=== PATIENT | male | born 1955 | race Caucasian/White ===

== ENCOUNTER 2023-04-05 07:17 | Emergency (ER) | payer MEDICARE, OTHER, SELFPAY ==
[2023-04-05] VITALS (7 sets, daily range): BP systolic 110–129; BP diastolic 71–87; PULSE 61–97; RESP 18–20; TEMP 36.4; O2SAT 97–100; BMI 20.3
--- NOTE | 2023-04-05 07:25 | XR_ITS ---
PROCEDURE INFORMATION: Exam: XR Chest Exam date and time: 04/05/2023 7:54 AM Age: 68 years old Clinical indication: Other: Fall; Additional info: Fall, seizure TECHNIQUE: Imaging protocol: Radiologic exam of the chest. Views: 1 view. COMPARISON: No relevant prior studies available. FINDINGS: Lungs: Unremarkable. No consolidation. Pleural spaces: Unremarkable. No pleural effusion. No pneumothorax. Heart/Mediastinum: Unremarkable. No cardiomegaly. Bones/joints: Degenerative changes in the right acromioclavicular joint. Degenerative changes along the thoracic spine IMPRESSION: No acute process
--- NOTE | 2023-04-05 07:25 | CT_ITS ---
PROCEDURE INFORMATION: Exam: CT Head Without Contrast Exam date and time: 04/05/2023 8:08 AM Age: 68 years old Clinical indication: Pain; Other: No; Additional info: Fall, seizure. . Knot to front lt head TECHNIQUE: Imaging protocol: Computed tomography of the head without contrast. Radiation optimization: All CT scans at this facility use at least one of these dose optimization techniques: automated exposure control; mA and/or kV adjustment per patient size (includes targeted exams where dose is matched to clinical indication); or iterative reconstruction. REPORTING DATA: Count of CT and Cardiac NM exams in prior 12 months: This patient has received 0 known CTs and 0 known cardiac nuclear medicine studies in the 12 months prior to the current study. COMPARISON: No relevant prior studies available. FINDINGS: Brain: No acute intracranial hemorrhage.. There is mild diffuse heterogeneity of the white matter attenuation, consistent with chronic white matter ischemic changes. Mild cerebral atrophy Cerebral ventricles: No ventriculomegaly. Paranasal sinuses: Visualized sinuses are unremarkable. No fluid levels. Mastoid air cells: Visualized mastoid air cells are well aerated. Dental: Periapical lucencies in the maxilla and mandible may represent periapical abscess. Bones/joints: Unremarkable. No acute fracture. Soft tissues: Unremarkable. IMPRESSION: 1. No acute intracranial hemorrhage.. 2. Periapical lucencies in the maxilla and mandible may represent periapical abscess. PROCEDURE INFORMATION: Exam: CT Cervical Spine Without Contrast Exam date and time: 04/05/2023 8:08 AM Age: 68 years old Clinical indication: Pain; Other: No; Additional info: Fall, seizure. . Knot to front lt head TECHNIQUE: Imaging protocol: Computed tomography of the cervical spine without contrast. REPORTING DATA: Count of CT and Cardiac NM exams in prior 12 months: This patient has received 0 known CTs and 0 known cardiac nuclear medicine studies in the 12 months prior to the current study. COMPARISON: CR XR CHEST PORTABLE 04/05/2023 7:54 AM FINDINGS: Bones/joints: No acute fracture of the cervical spine. No subluxation or dislocation of the cervical spine. Anterior osteophyte formation C3 through C7. Posterior osteophyte formation C5. Degenerative changes in the facets at multiple levels. Degenerative changes at C1/C2 Lungs: Lung apices are normal. Thyroid: The thyroid is unremarkable Soft tissues: Unremarkable. IMPRESSION: 1. No acute fracture of the cervical spine. 2. No subluxation or dislocation of the cervical spine.
--- NOTE | 2023-04-05 07:25 | XR_ITS ---
PROCEDURE INFORMATION: Exam: XR Pelvis Exam date and time: 04/05/2023 7:54 AM Age: 68 years old Clinical indication: Injury or trauma; Fall; Additional info: Fall, seizure TECHNIQUE: Imaging protocol: Radiologic exam of the pelvis. Views: 1 or 2 view. COMPARISON: No relevant prior studies available. FINDINGS: Bones/joints: Degenerative changes in both hips and sacroiliac joints. There is no evidence of acute fracture in any of the visualized osseous structures.. There is no evidence of malalignment or dislocation of any visualized joint. Soft tissues: Unremarkable. IMPRESSION: 1. There is no evidence of acute fracture in any of the visualized osseous structures.. 2. There is no evidence of malalignment or dislocation of any visualized joint.
--- NOTE | 2023-04-05 07:34 | HMH.EDGENADL ---
Discharge Plan Disposition Patient Disposition: Xfer Other Condition: Good Referrals Follow up/Referrals: Provider,Referral, [Primary Care Provider] - See instructions Activity Restrictions/Add. Instructions Additional Instructions/Restrictions: Please follow-up with your primary care provider over the next 48 hours. Continue taking your home medications as prescribed. Return to the emergency department for new or worsening symptoms. Clinical Impressions Clinical Impression: Fall, Schizophrenia, Hypokalemia Instructions Patient Instructions: DI for Schizophrenia, How to Prevent Falls, DI for Altered Mental Status Discharge ED Provider: Erin Blount General Adult HPI General Chief complaint: Altered Mental Status Stated complaint: Fall Time Seen by Provider: 04/05/23 07:18 Mode of Arrival: EMS Source of Information: Patient Limitations: Altered Mental Status Description of Symptoms (Recalled from ER Triage Doc. by RN): pt to ed via ems with c/o possible seizure/fall. per [facility] staff, they think pt had a seizure and fell this morning. pt denies any pain and denies falling. on arrival to ed pt is altered. History of Present Illness HPI narrative: This patient is a 68-year-old male with a history of schizophrenia presenting from [facility] with concern for possible seizure and fall that happened this morning. According to [facility] staff, the patient has not been himself for several days now. They had to throw a lot of his belongings because of bedbugs, and after this he has been behaving abnormally. He has been more agitated than usual. EMS notes that today, they were concerned that he had what appeared to be convulsions and then fell to the ground. Upon arrival, patient denies any concerns or complaints, however he is disoriented. He does have a small area of redness/swelling to the left forehead. Related Data Allergies Allergy/AdvReac Type Severity Reaction Status Date / Time No Known Allergies Allergy Verified 04/05/23 07:52 [facility] Disclaimer: The information contained in this section may have been updated after the patient was seen, as this information can be updated by other users. Social History Smoking Status: Never smoker alcohol intake: never current occupational status: unemployed Travel in the last 8 weeks: None ROS Obtained: Yes All systems reviewed & no additional complaints except as documented Physical Exam General General appearance: alert Comment: thin Head Head exam: normocephalic and other (hematoma L forehead) Eye Eye exam: Present normal appearance, PERRL and EOMI ENT ENT exam: Present normal exam, normal oropharynx, mucous membranes moist and normal external ear exam Neck Neck exam: Present normal inspection, full ROM and trachea midline; Absent tenderness Chest Chest inspection: Present normal inspection and symmetric chest wall rise; Absent tenderness Respiratory Respiratory exam: Present normal lung sounds bilaterally; Absent respiratory distress, wheezes, stridor or accessory muscle use Cardiovascular Cardiovascular exam: Present regular rate and normal rhythm Abdominal Exam Abdominal exam: Present soft; Absent distention, tenderness or guarding Extremities Exam Extremities exam: Present normal inspection, full ROM and normal capillary refill; Absent tenderness or edema Back Exam Back exam: Present normal inspection and full ROM; Absent tenderness Neurological Exam Neurological exam: Present alert, CN II-XII intact and normal gait; Absent oriented X3 (oriented to person and place but not time) or motor sensory deficit Psychiatric Psychiatric exam: Present agitated (defensive, combative) Skin Skin exam: Present warm and dry Medical Decision Making Medical Records Medical records reviewed: Yes I reviewed the patient's medical records. Vinayak Inquiry Pt receiving controlled substance: No Vital Sign
[2023-04-05 07:45] LABS: VBG Base Excess -5.2 mmol/L (-2.4-2.3); VBG HCO3 20.5 mmol/L (23-30); VBG Oxygen Saturation 85.6 % (50-70); VBG PCO2 38.6 mmol/L (35-51); VBG PH 7.34 mmol/L (7.31-7.41); VBG PO2 52.3 mmol/L (28-40); VBG Total CO2 21.7 mmol/L (23-27)
[2023-04-05 07:53] LABS: Basophils % 0.4 % (0.1-2.0); Eosinophils # 0.2 K/mm3 (0.0-0.4); Eosinophils % 1.7 % (0.1-12.0); Hematocrit 41.3 % (42.0-52.0); Hemoglobin 13.3 g/dL (14.1-18.0); Lymphocytes # 3.1 K/mm3 (0.7-4.5); Lymphocytes % 26.2 % (10-50); Mean Corpuscular HGB Conc 32.2 g/dL (31.8-35.4); Mean Corpuscular Hemoglobin 31.4 pg (27.0-31.2); Mean Corpuscular Volume 97.4 fl (80-94); Mean Platelet Volume 8.5 fl (7.4-10.4); Monocytes # 0.8 K/mm3 (0.1-1.0); Monocytes % 6.5 % (1.7-9.3); Neutrophils # 7.7 K/mm3 (1.8-7.8); Neutrophils % 65.2 % (37.0-80.0); Platelet Count 255 K/mm3 (142-424); Red Blood Count 4.24 M/mm3 (4.60-6.20); Red Cell Distribution Width 13.2 % (11.5-17.5); White Blood Count 11.8 K/mm3 (4.8-10.8)
--- NOTE | 2023-04-05 07:58 | ECG_ITS ---
APPROVED REPORT Exam: Resting ECG HR:90 bpm ECG Measurements Heart Rate 90 AXES SD 142 P 68 QRSd 89 QRS 56 QT 367 T 62 QTc 415 Conclusion SINUS RHYTHM NORMAL ECG UNCONFIRMED REPORT Electronically signed by : Abel Vaughn MD 04/07/2023 17:15:10
[2023-04-05 08:00] LABS: Lactic Acid 1.9 mmol/L (0.7-2.1)
[2023-04-05 08:01] LABS: Alanine Aminotransferase 23 U/L (12-78); Albumin Level 3.7 g/dl (3.5-5.0); Albumin/Globulin Ratio 1.2 (1.1-1.8); Alkaline Phosphatase 76 U/L (38-126); Anion Gap 14.2 mEq/L (5-15); Aspartate Amino Transferase 39 U/L (17-59); Bilirubin,Total 1.1 mg/dl (0.2-1.3); Blood Urea Nitrogen 21 mg/dl (9-20); Calcium 8.8 mg/dl (8.4-10.2); Carbon Dioxide 22 mmol/L (22.0-30.0); Chloride 104 mmol/L (98-107); Creatinine Clearance Estimated 60 mL/min (50-200); Estimated Glomerular Filt Rate 66 ml/min (>60); GFR (African American) 80 ML/MIN (>60); Globulin 3.1 g/dL (1.3-3.2); Glucose 147 mg/dl (74-100); Potassium 3.2 mmoL/L (3.5-5.1); Sodium 137 mmol/L (136-145); Total Protein,Serum 6.8 g/dl (6.3-8.2)
--- NOTE | 2023-04-05 08:02 | PC.NURSE ---
pt to ct
[2023-04-05 08:37] LABS: Ammonia 14 umol/L (9-30)
--- NOTE | 2023-04-05 09:00 | PC.NURSE ---
pt sleeping in bed no needs,call lighta at bs
--- NOTE | 2023-04-05 09:09 | PC.NURSE ---
EKG obtained [id number]
--- NOTE | 2023-04-05 09:12 | PC.NURSE ---
pt ambulated to restroom and back with no complications, call light at bs
--- NOTE | 2023-04-05 10:05 | PC.NURSE ---
pt was given a lunch tray by [facility] tech
--- NOTE | 2023-04-05 10:38 | PC.NURSE ---
Pt is now resting in bed no needs call light at bs
--- NOTE | 2023-04-05 11:18 | PC.NURSE ---
rounded on pt at this time. pt adamant that he is unable to pee, although he has been given PO liquids to help encourage urination for sample. pt resting in bed, no needs voiced at this time.
[2023-04-05 11:51] LABS: Appearance,Urine CLEAR (Clear); Blood, Urine Negative (Negative); Glucose,Urine (UA) TRACE (Negative); Ketones,Urine TRACE (Negative); Leukocyte Esterase,Urine TRACE (Negative); Microscopic, Urine URINE MICROSCOPIC (MICROSCOPIC); Nitrate,Urine Negative (Negative); Protein,Urine 1+ (Negative); Urobilinogen,Urine >=8.0 EU/dl (0.2)
[2023-04-05 11:52] LABS: Bilirubin,Urine 1+ (Negative); Color,Urine Dark Yellow (Yellow)
--- NOTE | 2023-04-05 12:01 | PC.NURSE ---
Calling [facility] to let them no pt was ready for discharge no answer will try again
--- NOTE | 2023-04-05 12:07 | PC.NURSE ---
Attempted to call [facility] no answer
--- NOTE | 2023-04-05 12:10 | PC.NURSE ---
call made to [facility] with no answer.
--- NOTE | 2023-04-05 12:17 | PC.NURSE ---
call made to daniel samano, due to inability of getting jana gardner.
--- NOTE | 2023-04-05 12:18 | PC.NURSE ---
attempted to call [facility] no answer
--- NOTE | 2023-04-05 12:20 | PC.NURSE ---
received call from [facility]. let staff know that pt was ready to be discharged back to facility. staff stated that they would find someone to come get the pt.
--- NOTE | 2023-04-05 12:34 | PC.NURSE ---
pt asleep in bed , call light at bs
--- NOTE | 2023-04-05 12:50 | PC.NURSE ---
the ride for pt has arrived from [facility]
== END 2023-04-05 12:53 | disposition other institution (70) ==
PROVIDERS: Emergency Provider Emergency Medicine
DX: R41.82 Altered mental status, unspecified (principal); R56.9 Unspecified convulsions; E87.6 Hypokalemia; F20.9 Schizophrenia, unspecified; W19.XXXA Unspecified fall, initial encounter
CPT/HCPCS: 70450; 71045; 72125; 72170; 80053; 81001; 82140; 82803; 83605; 85025; 93005; 96372; 99285

== ENCOUNTER 2023-11-02 12:01 | Emergency (ER) | payer MEDICARE, OTHER, SELFPAY ==
[2023-11-02 12:01] VITALS: BP 116/69; PULSE 79; PULSE 82; RESP 17; TEMP 36.8; O2SAT 98; O2SAT 99; BMI 25.8
[2023-11-02 12:30] VITALS: BP 115/74; PULSE 68; O2SAT 98
--- NOTE | 2023-11-02 12:30 | PC.NURSE ---
Dr. Camrona at bedside
--- NOTE | 2023-11-02 12:38 | CT_ITS ---
PROCEDURE INFORMATION: Exam: CTA Neck With Contrast Exam date and time: 11/02/2023 1:22 PM Age: 68 years old Clinical indication: Other: AMS TECHNIQUE: Imaging protocol: Computed tomographic angiography of the neck with contrast. Exam focused on the cervical segments of the vasculature. 3D rendering (Not supervised by radiologist): MIP and/or 3D reconstructed images were created by the technologist. Radiation optimization: All CT scans at this facility use at least one of these dose optimization techniques: automated exposure control; mA and/or kV adjustment per patient size (includes targeted exams where dose is matched to clinical indication); or iterative reconstruction. Contrast material: ISOVUE; Contrast volume: 100 ml; Contrast route: INTRAVENOUS (IV); COMPARISON: CT CERVICAL SPINE WO CON 04/05/2023 8:08 AM FINDINGS: Right common carotid artery: No stenosis. No dissection or occlusion. Right internal carotid artery: No stenosis of the extracranial segment. No dissection or occlusion. Right external carotid artery: No occlusion or stenosis of the origin. Left common carotid artery: No stenosis. No dissection or occlusion. Left internal carotid artery: No stenosis of the extracranial segment. No dissection or occlusion. Left external carotid artery: No occlusion or stenosis of the origin. Right vertebral artery: No stenosis. No dissection or occlusion. Left vertebral artery: No stenosis. No dissection or occlusion. Soft tissues: Normal. No significant soft tissue swelling. Bones/joints: No acute fracture. IMPRESSION: No stenosis or occlusion. REFERENCES: NASCET CRITERIA. The degree of stenosis in the cervical segment of the internal carotid artery is based on NASCET criteria. Normal is no stenosis. Mild is less than 50% stenosis. Moderate is 50-69% stenosis. Severe is 70% to 99% stenosis. Total occlusion is no detectable patent lumen.
--- NOTE | 2023-11-02 12:38 | XR_ITS ---
PROCEDURE INFORMATION: Exam: XR Chest Exam date and time: 11/02/2023 1:22 PM Age: 68 years old Clinical indication: Dyspnea TECHNIQUE: Imaging protocol: Radiologic exam of the chest. Views: 1 view. COMPARISON: CR XR CHEST PORTABLE 04/05/2023 7:54 AM FINDINGS: Lungs: Unremarkable. No consolidation. Pleural spaces: Unremarkable. No pleural effusion. No pneumothorax. Heart/Mediastinum: Aortic atherosclerosis. No cardiomegaly. Bones/joints: Unremarkable. IMPRESSION: No acute findings.
--- NOTE | 2023-11-02 12:38 | CT_ITS ---
PROCEDURE INFORMATION: Exam: CTA Head With Contrast, Arteriography Exam date and time: 11/02/2023 1:22 PM Age: 68 years old Clinical indication: Other: AMS TECHNIQUE: Imaging protocol: Computed tomographic angiography of the head with contrast. Exam focused on the arteries. 3D rendering (Not supervised by radiologist): MIP and/or 3D reconstructed images were created by the technologist. Radiation optimization: All CT scans at this facility use at least one of these dose optimization techniques: automated exposure control; mA and/or kV adjustment per patient size (includes targeted exams where dose is matched to clinical indication); or iterative reconstruction. Contrast material: ISOVUE; Contrast volume: 100 ml; Contrast route: INTRAVENOUS (IV); COMPARISON: CT HEAD/BRAIN WO CON 11/02/2023 1:22 PM FINDINGS: ANTERIOR CIRCULATION: Right internal carotid artery: Intracranial segment is patent with no significant stenosis. No aneurysm. Right middle cerebral artery: No occlusion or significant stenosis. No aneurysm. Right anterior cerebral artery: No occlusion or significant stenosis. No aneurysm. Left internal carotid artery: Intracranial segment is patent with no significant stenosis. No aneurysm. Left middle cerebral artery: No occlusion or significant stenosis. No aneurysm. Left anterior cerebral artery: No occlusion or significant stenosis. No aneurysm. POSTERIOR CIRCULATION: Right vertebral artery: No occlusion or significant stenosis. No aneurysm. Left vertebral artery: No occlusion or significant stenosis. No aneurysm. Basilar artery: No occlusion or significant stenosis. No aneurysm. Right posterior cerebral artery: No occlusion or significant stenosis. No aneurysm. Left posterior cerebral artery: No occlusion or significant stenosis. No aneurysm. Brain: There is a 0.7 x 1.5 x 2.0 cm area of bulky calcification in left posterior temporal lobe, of unknown etiology (series 3, image 30). No acute intracranial hemorrhage, midline shift, or mass effect. Basal cisterns are patent. No findings to suggest acute infarction. Cerebral ventricles: Prominent sulci and ventricles, consistent with mild to moderate cerebral atrophy. Bones/joints: Unremarkable. No acute fracture. Soft tissues: Unremarkable. IMPRESSION: 1. No large vessel stenosis or occlusion. 2. There is a 0.7 x 1.5 x 2.0 cm area of bulky calcification in left posterior temporal lobe, of unknown etiology (series 3, image 30). No acute intracranial hemorrhage, midline shift, or mass effect. Basal cisterns are patent. No findings to suggest acute infarction. 3. Prominent sulci and ventricles, consistent with mild to moderate cerebral atrophy.
--- NOTE | 2023-11-02 12:38 | CT_ITS ---
PROCEDURE INFORMATION: Exam: CT Head Without Contrast Exam date and time: 11/02/2023 1:22 PM Age: 68 years old Clinical indication: Altered mental status/memory loss; Additional info: AMS TECHNIQUE: Imaging protocol: Computed tomography of the head without contrast. Radiation optimization: All CT scans at this facility use at least one of these dose optimization techniques: automated exposure control; mA and/or kV adjustment per patient size (includes targeted exams where dose is matched to clinical indication); or iterative reconstruction. COMPARISON: CT ANGIO HEAD 11/02/2023 1:22 PM FINDINGS: Brain: There is a 0.7 x 1.5 x 2.0 cm area of bulky calcification in left posterior temporal lobe, of unknown etiology (series 3, image 30). No acute intracranial hemorrhage, midline shift, or mass effect. Basal cisterns are patent. No findings to suggest acute infarction. Prominent sulci and ventricles, consistent with mild to moderate cerebral atrophy. Cerebral ventricles: See Brain finding. Paranasal sinuses: Visualized sinuses are unremarkable. No fluid levels. Mastoid air cells: Visualized mastoid air cells are well aerated. Bones/joints: Unremarkable. No acute fracture. Soft tissues: Unremarkable. IMPRESSION: 1. There is a 0.7 x 1.5 x 2.0 cm area of bulky calcification in left posterior temporal lobe, of unknown etiology. Findings are nonspecific, although intracranial calcifications may be a source of seizures. 2. No acute intracranial hemorrhage, midline shift, or mass effect. Basal cisterns are patent. 3. No findings to suggest acute infarction. 4. Prominent sulci and ventricles, consistent with mild to moderate cerebral atrophy.
--- NOTE | 2023-11-02 12:41 | HMH.EDGENADL ---
Discharge Plan Disposition Patient Disposition: Home, Self-Care Prescriptions Prescriptions: No Action donepezil 5 mg tablet 5 mg PO DAILY divalproex 500 mg tablet,delayed release (DR/EC) 500 mg PO BID zonisamide 100 mg capsule 100 mg PO BID citalopram 20 mg tablet 20 mg PO DAILY ibuprofen 600 mg tablet 600 mg PO TIDP PRN (Reason: Pain (Scale Score 1-3)) CertaVite Senior 0.4 mg-300 mcg- 250 mcg tablet 1 tab PO DAILY Referrals Follow up/Referrals: Provider,Referral, MD [Primary Care Provider] - See instructions Activity Restrictions/Add. Instructions Additional Instructions/Restrictions: Mr. Blanco presented today with altered mental status that over the period of 2-1/2 hours he is now back to his baseline awake oriented answering questions appropriately feels as if he had a seizure. [facility] it sounds as if he most likely had a breakthrough seizure. 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 Had some mild respiratory depression, mild elevation in his AST, and a mild elevation in his ammonia level. However his valproic acid level was normal in and of itself. I recommend that he follow-up with a neurologist or his primary care doctor to discuss decreasing his valproic acid level and or considering other agents as this may have been the cause of his symptoms today. Nonetheless no emergent medical condition was identified and he was at his baseline upon being discharged. Clinical Impressions Clinical Impression: Schizophrenia, Altered mental status Instructions Patient Instructions: DI for Altered Mental Status Discharge ED Provider: Albin Carmona General Adult HPI General Chief complaint: Altered Mental Status Stated complaint: AMS Time Seen by Provider: 11/02/23 12:24 Mode of Arrival: EMS Source of Information: Patient Limitations: Altered Mental Status Description of Symptoms (Recalled from ER Triage Doc. by RN): Pt brought in by EMS from [facility] d/t not acting right . States pt is typically A&Ox4 but in the last hr has been Acting weird and not himself . Per EMS, pt has lucidly answered questions and then very anxious and skittish. FS 137. Pt does have a hx of schizophrenia. He denies any pain, fever, or SOA. History of Present Illness HPI narrative: Patient is a 68-year-old male with a history of seizures who lives at [facility] presented to the emergency department for not acting right no further history is able to be obtained prehospital and patient is a very poor historian so it is very difficult to ascertain what is exactly going on. The patient himself states he has no complaints does not know when he got to the hospital does not know the circumstances that led to his arrival today and states I must of had a seizure. Claims that he is compliant with all of his medications including his antiepileptics. Related Data Home Medications Medication Instructions Recorded Confirmed citalopram 20 mg tablet 20 mg PO DAILY 11/02/23 11/02/23 divalproex 500 mg tablet,delayed 500 mg PO BID 11/02/23 11/02/23 release donepezil 5 mg tablet 5 mg PO DAILY 11/02/23 11/02/23 ibuprofen 600 mg tablet 600 mg PO TIDP PRN Pain (Scale 11/02/23 11/02/23 Score 1-3) zucadioi-apx-redkl acid 0.4 1 tab PO DAILY 11/02/23 11/02/23 mg-lycopene 300 mcg-lutein 250 mcg tablet (CertaVite Senior) zonisamide 100 mg capsule 100 mg PO BID 11/02/23 11/02/23 Allergies Allergy/AdvReac Type Severity Reaction Status Date / Time No Known Allergies Allergy Verified 04/05/23 07:52 [facility] Disclaimer: The information contained in this section may have been updated after the patient was seen, as this information can be updated by other users. Social History (Updated 04/05/23 @ 13:31 by Erin Blount DO) Smoking Status: Current some day smoker alcohol intake: never current occupational status: unemployed Travel in the last 8 weeks: None ROS Obtained: Yes All systems reviewed & no additional complaints except as documented Physical Exam General General appearance: alert and in no apparent distress Neck Neck exam: Present normal inspection and full ROM; Absent meningismus Respiratory Respiratory exam: Present normal lung sounds bilaterally and respiratory distress Cardiovascular Cardiovascular exam: Present regular rate and normal rhythm Neurological Exam Neurological exam: Present alert, oriented X3, CN II-XII intact and normal gait; Absent motor sensory deficit Psychiatric Psychiatric exam: Present other (Bizarre affect) Medical Decision Making Vinayak Inquiry Pt receiving controlled substance: No Vital Signs: 11/02/23 12:01 11/02/23 12:01 11/02/23 12:30 Temperature 98.3 F Temperature Source Oral Pulse Rate 82 68 Pulse Rate [Right] 79 Respiratory Rate 17 Blood Pressure 116/69 115/74 Blood Pressure [Right Arm] 116/69 Blood Pressure Mean [Right Arm] 84 Blood Pressure Source [Right Arm] Automatic Cuff 02 Sat by Pulse Oximetry 98 99 98 Oxygen Delivery Method Room Air Room Air 11/02/23 13:01 11/02/23 13:30 Temperature Temperature Source Pulse Rate 68 63 Pulse Rate [Right] Respiratory Rate 15 14 Blood Pressure 121/74 116/63 Blood Pressure [Right Arm] Blood Pressure Mean [Right Arm] Blood Pressure Source [Right Arm] 02 Sat by Pulse Oximetry 99 99 Oxygen Delivery Method Lab Data Lab results reviewed: Yes I reviewed the patient's lab results. Lab Results 11/02/23 12:01: WBC 6.6, RBC 3.96 L, Hgb 12.9 L, Hct 39.9 L, MCV 100.5 H, MCH 32.5 H, MCHC 32.3, RDW 14.2, Plt Count 205, MPV 9.3, Neut % (Auto) 48.3, Lymph % (Auto) 37.7, [place] % (Auto) 9.9 H, Eos % (Auto) 3.3, Baso % (Auto) 0.9, Neut # (Auto) 3.2, Lymph # (Auto) 2.5, [place] # (Auto) 0.7, Eos # (Auto) 0.2, Baso # (Auto) 0.1, PT 11.2, INR 1.04, Sodium 137, Potassium 3.9, Chloride 106, Carbon Dioxide 28, Anion Gap 6.9, BUN 13, Creatinine 0.80, Estimated Creat Clear 79, Estimated GFR 96, Est GFR ( Amer) 116, Glucose 114 H, Calcium 9.2, Total Bilirubin 0.5, AST 92 H, ALT 34, Alkaline Phosphatase 67, Total Protein 6.5, Albumin 3.6, Globulin 2.9, Albumin/Globulin Ratio 1.2, TSH 1.89, Total Valproic Acid 51.4, Plasma/Serum Alcohol < 10 11/02/23 12:46: VBG pH 7.24 L, VBG pCO2 53.9 H, VBG pO2 31.0, VBG HCO3 22.8 L, VBG Total CO2 24.4, VBG O2 Saturation 53.3, VBG Base Excess -4.5 L, VBG Lactic Acid 2.6 H 11/02/23 12:48: Ammonia 50 H 11/02/23 12:01 11/02/23 12:01 Orders (Tests/Meds): ED MEDICATIONS Discontinued Medications Generic Name Dose Route Start Last Admin Trade Name Gordonq PRN Reason Stop Dose Admin Lactated Ringer's 1,000 mls @ 999 mls/hr 11/02/23 12:45 11/02/23 12:53 Lactated Ringer's 1000 Ml Bag IV 11/02/23 13:45 999 mls/hr .Q1H1M JAY Administration Iopamidol 100 ml 11/02/23 13:23 11/02/23 13:31 Iopamidol-370 (76%);100ml Bottle IV 11/02/23 13:24 100 ml ONCE ONE Administration Sodium Chloride 50 ml 11/02/23 13:23 11/02/23 13:31 0.9 % Sodium Chloride 50 Ml Vial IV 11/02/23 13:24 50 ml ONCE ONE Administration Sodium Chloride 10 ml 11/02/23 13:23 11/02/23 13:31 Sodium Chloride 0.9% 10ml Syr (Rad Only) IV 11/02/23 13:24 10 ml ONCE ONE Administration ORDERS Category Date Time Status CT angio head Stat Cat Scan 11/02/23 12:[address] angio neck Stat Cat Scan 11/02/23 12:[address] head/brain wo con Stat Cat Scan 11/02/23 12:38 Completed CXR --portable [XR chest portable] Stat Exams 11/02/23 12:38 Completed Ammonia Stat Lab 11/02/23 12:48 Completed CBC w/Auto Diff [Complete Blood Count Auto Diff] Stat Lab 11/02/23 12:01 Completed CMP [Comprehensive Metabolic Panel] Stat Lab 11/02/23 12:01 Completed Ethanol [Ethyl Alcohol] Stat Lab 11/02/23 12:01 Completed PT INR [Prothrombin Time INR] Stat Lab 11/02/23 12:01 Completed TSH [Thyroid Stimulating Hormone] Stat Lab 11/02/23 12:01 Completed UA [Urinalysis and Microscopic] Stat Lab 11/02/23 12:39 Ordered UDS [Drug Screen,Urine] Stat Lab 11/02/23 12:38 Ordered Valproic Acid, (Depakene) Stat Lab 11/02/23 12:01 Completed Venous Blood Gas Stat RT 11/02/23 12:46 Completed ECG Data Tracing #1: I reviewed this ECG and interpreted as documented below: Ventricular rate of 66 normal sinus rhythm normal axis no acute ischemic changes or conduction abnormalities noted Medical Decision Narrative: Patient is a bizarre behaving 68-year-old male with a history of schizophrenia who lives at [facility] presents today with questionable altered mental status. He is awake alert oriented answering questions but does not remember the circumstances that led to his arrival today. Given the fact that I do not know definitively what he is like at his baseline we will work him up for altered mental status. Certainly could have abnormality such as valproic acid intoxication, drug overdose, drug withdrawal, intracranial hemorrhage tumor stroke metabolic abnormality or infection. Broad workup has been initiated. Reassessment 233 patient doing much better is awake alert oriented has been this way for an extended period of time answering questions appropriately feels as if he had a seizure. Additionally I spoke to Vicki at [facility] who has been caring for him for a long time it sounds as if he did urinate on himself and was very confused this morning. Most likely he was postictal when he first arrived and at that time. Has had no seizure-like activity at this time he has a known history of seizures on seizure medications been compliant with his medications. Additionally scans were unremarkable my personal interpretation he does have an area of calcification that is old in comparison with old CT scans but nothing acute. He did have a mildly elevated AST some respiratory depression on the venous blood gas he is breathing normally at this point and also a very mildly elevated ammonia however his valproic acid level is normal. It is possible he has some chronic valproic acid toxicity I spoke with our hospital medicine doctor and at this point we do not feel comfortable admitting this patient discontinuing that medication as it may make some of his underlying neurologic and psychiatric conditions worse. Therefore given the fact that he is back at his baseline and has good follow-up he has a provider that we will see him tomorrow I believe he is stable and okay to be discharged from an emergency standpoint. I do not suspect any alternative explanation at this point such as PROSPECTING DRILLER infection etc. Critical Care Critical Care Time Critical Care Time: No
[2023-11-02 12:46] LABS: Basophils # 0.1 K/mm3 (0-0.2); Basophils % 0.9 % (0.1-2.0); Eosinophils # 0.2 K/mm3 (0.0-0.4); Eosinophils % 3.3 % (0.1-12.0); Hematocrit 39.9 % (42.0-52.0); Hemoglobin 12.9 g/dL (14.1-18.0); Lymphocytes # 2.5 K/mm3 (0.7-4.5); Lymphocytes % 37.7 % (10-50); Mean Corpuscular HGB Conc 32.3 g/dL (31.8-35.4); Mean Corpuscular Hemoglobin 32.5 pg (27.0-31.2); Mean Corpuscular Volume 100.5 fl (80-94); Mean Platelet Volume 9.3 fl (7.4-10.4); Monocytes # 0.7 K/mm3 (0.1-1.0); Monocytes % 9.9 % (1.7-9.3); Neutrophils # 3.2 K/mm3 (1.8-7.8); Neutrophils % 48.3 % (37.0-80.0); Platelet Count 205 K/mm3 (142-424); Red Blood Count 3.96 M/mm3 (4.60-6.20); Red Cell Distribution Width 14.2 % (11.5-17.5); White Blood Count 6.6 K/mm3 (4.8-10.8)
[2023-11-02 12:47] LABS: Chloride 106 mmol/L (98-107)
[2023-11-02 12:48] LABS: Potassium 3.9 mmoL/L (3.5-5.1); Sodium 137 mmol/L (136-145)
[2023-11-02 12:50] LABS: Alanine Aminotransferase 34 U/L (12-78); Alkaline Phosphatase 67 U/L (38-126); Aspartate Amino Transferase 92 U/L (17-59); Bilirubin,Total 0.5 mg/dl (0.2-1.3); Blood Urea Nitrogen 13 mg/dl (9-20); Creatinine Clearance Estimated 79 mL/min (50-200); Estimated Glomerular Filt Rate 96 ml/min (>60); GFR (African American) 116 ML/MIN (>60)
--- NOTE | 2023-11-02 12:50 | ECG_ITS ---
APPROVED REPORT Exam: Resting ECG HR:66 bpm ECG Measurements Heart Rate 66 AXES MO 153 P 55 QRSd 92 QRS 48 QT 417 T 58 QTc 430 Conclusion SINUS RHYTHM NORMAL ECG UNCONFIRMED REPORT Electronically signed by : Anthony Carmona, 11/04/2023 23:14:12
[2023-11-02 12:51] LABS: Albumin Level 3.6 g/dl (3.5-5.0); Albumin/Globulin Ratio 1.2 (1.1-1.8); Anion Gap 6.9 mEq/L (5-15); Calcium 9.2 mg/dl (8.4-10.2); Carbon Dioxide 28 mmol/L (22.0-30.0); Globulin 2.9 g/dL (1.3-3.2); Glucose 114 mg/dl (74-100); Total Protein,Serum 6.5 g/dl (6.3-8.2)
[2023-11-02 12:52] LABS: VBG Base Excess -4.5 mmol/L (-2.4-2.3); VBG HCO3 22.8 mmol/L (23-30); VBG Oxygen Saturation 53.3 % (50-70); VBG PCO2 53.9 mmol/L (35-51); VBG PH 7.24 mmol/L (7.31-7.41); VBG Total CO2 24.4 mmol/L (23-27)
[2023-11-02 12:53] LABS: Lactate Venous 2.6 mmol/L (0.4-2.0)
[2023-11-02 12:53] LABS: Ethyl Alcohol < 10 mg/dl (0-10)
[2023-11-02] MEDS: LACTATED RINGERS 1000ML 1,000 ML 999 ML IV (12:53)
--- NOTE | 2023-11-02 12:55 | PC.NURSE ---
notified radiology on contact precautions and pt was ready for scan.
[2023-11-02 13:01] VITALS: BP 121/74; PULSE 68; RESP 15; O2SAT 99
[2023-11-02 13:02] LABS: Ammonia 50 umol/L (9-30)
[2023-11-02 13:22] LABS: Thyroid Stimulating Hormone 1.89 uIU/mL (0.465-4.68)
[2023-11-02 13:30] VITALS: BP 116/63; PULSE 63; RESP 14; O2SAT 99
[2023-11-02] MEDS: IOPAMIDOL-370 (76%);100ML BOTTLE 100 ML IV (13:31)
[2023-11-02] MEDS: SODIUM CHLORIDE 0.9% 10ML SYR (RAD ONLY) 10 ML IV (13:31)
[2023-11-02] MEDS: 0.9 % SODIUM CHLORIDE 50 ML VIAL IV (13:31)
[2023-11-02 13:32] LABS: INR 1.04 (0.9-1.1); Prothrombin Time 11.2 seconds (10.1-12.5)
[2023-11-02 13:46] LABS: Valproic Acid, (Depakene) 51.4 ug/ml (50-100)
--- NOTE | 2023-11-02 14:27 | PC.NURSE ---
speaking with xenia gardner to get pt baseline
[2023-11-02 15:04] VITALS: BP 134/88; PULSE 60; RESP 17; TEMP 36.8; O2SAT 99
[2023-11-02 15:12] LABS: Microscopic, Urine URINE MICROSCOPIC (MICROSCOPIC)
[2023-11-02 15:14] LABS: Appearance,Urine CLEAR (Clear); Bilirubin,Urine Negative (Negative); Blood, Urine Negative (Negative); Color,Urine YELLOW (Yellow); Glucose,Urine (UA) Negative (Negative); Ketones,Urine Negative (Negative); Leukocyte Esterase,Urine Negative (Negative); Nitrate,Urine Negative (Negative); PH,Urine 7.5 (5.0-8.5); Protein,Urine Negative (Negative)
[2023-11-02 15:26] LABS: Benzodiazepines Screen,Urine Negative ng/ml (<200)
[2023-11-02 15:27] LABS: Barbiturates Screen,Urine Negative ng/ml (<200)
[2023-11-02 15:28] LABS: Cannabinoid Screen,Urine Negative ng/ml (<50)
[2023-11-02 15:29] LABS: Cocaine Screen,Urine Negative ng/ml (<300)
[2023-11-02 15:30] LABS: Opiate Screen,Urine Negative ng/ml (<300)
[2023-11-02 15:33] LABS: Amphetamine/Metha Screen,Urine Negative ng/ml (<1000)
[2023-11-02 15:34] LABS: Methadone Screen,Urine Negative ng/ml (<300)
[2023-11-02 15:36] LABS: Squamous Epithelial Cell,Urine Occasional #/hpf (0-5)
[2023-11-02 15:39] LABS: Phencyclidine Screen,Urine Negative ng/ml (<25)
[2023-11-02 16:52] LABS: Reflex Lactic Add Lactic Reflex
== END 2023-11-02 15:27 | disposition home or self-care (01) ==
PROVIDERS: Emergency Provider Student in an Organized Health Care Education/Training Program
DX: R41.82 Altered mental status, unspecified (principal); F20.9 Schizophrenia, unspecified; F17.210 Nicotine dependence, cigarettes, uncomplicated; R94.5 Abnormal results of liver function studies; Z79.899 Other long term (current) drug therapy
CPT/HCPCS: 70450; 70496; 70498; 71045; 80053; 80164; 80307; 81001; 82140; 82803; 84443; 85025; 85610; 93005; 96360; 99285; Q9967

== ENCOUNTER 2025-02-26 08:57 | Emergency (ER) | payer MEDICARE, OTHER, SELFPAY ==
[2025-02-26] VITALS (14 sets, daily range): BP systolic 91–137; BP diastolic 56–83; PULSE 52–89; RESP 11–18; TEMP 36.3–36.4; O2SAT 96–99; BMI 20.3
--- NOTE | 2025-02-26 08:58 | CT_ITS ---
PROCEDURE INFORMATION: Exam: CT Head Without Contrast Exam date and time: 02/26/2025 10:07 AM Age: 70 years old Clinical indication: Injury or trauma; Fall; Other: Pain; Additional info: Fall, seizure, hit head TECHNIQUE: Imaging protocol: Computed tomography of the head without contrast. Radiation optimization: All CT scans at this facility use at least one of these dose optimization techniques: automated exposure control; mA and/or kV adjustment per patient size (includes targeted exams where dose is matched to clinical indication); or iterative reconstruction. COMPARISON: CT ANGIO HEAD 11/02/2023 1:22 PM FINDINGS: Brain: Diffuse cerebral atrophy and white matter microangiopathic chronic ischemia in both hemispheres. No CT evidence of acute infarct, hemorrhage, mass or mass effect. Stable coarse calcifications within the left temporal lobe, unchanged from prior imaging. Cerebral ventricles: No ventriculomegaly. Paranasal sinuses: Minor mucosal thickening in the ethmoid and left maxillary sinus. No fluid levels. Mastoid air cells: Visualized mastoid air cells are well aerated. Bones: Unremarkable. No acute fracture. Soft tissues: Unremarkable. IMPRESSION: 1. Senescent brain changes but no CT evidence of acute brain injury. 2. Stable coarse dystrophic calcifications in the left temporal lobe, unchanged from prior imaging.
--- NOTE | 2025-02-26 08:58 | CT_ITS ---
PROCEDURE INFORMATION: Exam: CTA Neck With Contrast Exam date and time: 02/26/2025 10:12 AM Age: 70 years old Clinical indication: Injury or trauma; Fall; Other: Pain; Additional info: Fall, left neck trauma TECHNIQUE: Imaging protocol: Computed tomographic angiography of the neck with contrast. Exam focused on the cervical segments of the vasculature. 3D rendering (Not supervised by radiologist): MIP and/or 3D reconstructed images were created by the technologist. Radiation optimization: All CT scans at this facility use at least one of these dose optimization techniques: automated exposure control; mA and/or kV adjustment per patient size (includes targeted exams where dose is matched to clinical indication); or iterative reconstruction. Contrast material: ISOVUE; Contrast volume: 80 ml; Contrast route: INTRAVENOUS (IV); COMPARISON: CT ANGIO NECK 11/02/2023 1:22 PM FINDINGS: Right common carotid artery: No stenosis. No dissection or occlusion. Right internal carotid artery: No stenosis of the extracranial segment. No dissection or occlusion. Right external carotid artery: No occlusion or stenosis of the origin. Left common carotid artery: No stenosis. No dissection or occlusion. Left internal carotid artery: No stenosis of the extracranial segment. No dissection or occlusion. Left external carotid artery: No occlusion or stenosis of the origin. Right vertebral artery: No stenosis. No dissection or occlusion. Left vertebral artery: No stenosis. No dissection or occlusion. Soft tissues: Normal. No significant soft tissue swelling. Bones/joints: No acute fracture. IMPRESSION: No arterial stenosis or occlusion. REFERENCES: NASCET CRITERIA. The degree of stenosis in the cervical segment of the internal carotid artery is based on NASCET criteria. Normal is no stenosis. Mild is less than 50% stenosis. Moderate is 50-69% stenosis. Severe is 70% to 99% stenosis. Total occlusion is no detectable patent lumen.
--- NOTE | 2025-02-26 08:58 | CT_ITS ---
PROCEDURE INFORMATION: Exam: CTA Abdomen and Pelvis With Contrast Exam date and time: 02/26/2025 10:16 AM Age: 70 years old Clinical indication: Injury or trauma; Fall; Other: Pain; Additional info: Fall, abd pain, bruising TECHNIQUE: Imaging protocol: Computed tomographic angiography of the abdomen and pelvis with contrast. Exam focused on the arteries. 3D rendering (Not supervised by radiologist): MIP and/or 3D reconstructed images were created by the technologist. Radiation optimization: All CT scans at this facility use at least one of these dose optimization techniques: automated exposure control; mA and/or kV adjustment per patient size (includes targeted exams where dose is matched to clinical indication); or iterative reconstruction. Contrast material: ISOVUE; Contrast volume: 80 ml; Contrast route: INTRAVENOUS (IV); COMPARISON: CR XR PELVIS 1-2V 04/05/2023 7:54 AM FINDINGS: Aorta: No aortic aneurysm. No aortic dissection. Mild atherosclerotic calcifications. Celiac trunk and mesenteric arteries: No occlusion or significant stenosis. Renal arteries: No occlusion or significant stenosis. Right iliac arteries: No occlusion or significant stenosis. Left iliac arteries: No occlusion or significant stenosis. Liver: Small AVM in segment 4B of the liver. No liver masses. No steatosis. Gallbladder and biliary ducts: Gallbladder has several calcified stones without wall thickening or luminal distention. No biliary ductal dilatation. Pancreas: No mass. No ductal dilation. Spleen: No splenomegaly. No mass or surrounding fluid. Adrenal glands: No mass. Kidneys and ureters: Left kidney has 2 nonenhancing cysts in the lower pole that measure 1 cm or less. Stomach and bowel: No intestinal masses, bowel wall thickening, or abnormal luminal dilatation. Appendix: No evidence of appendicitis. Intraperitoneal space: No free air. No significant fluid collection. Lymph nodes: No enlarged lymph nodes. Urinary bladder: Trabeculated bladder wall thickening. No asymmetric wall thickening or masses. Reproductive: No abnormalities as visualized. Bones/joints: No acute fracture or focal bone lesions. Soft tissues: No soft tissue masses. No abdominal wall abnormalities. IMPRESSION: 1. No aortic aneurysm or intimal dissection. No arterial stenoses, occlusions, or injuries. 2. 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 3. Cholelithiasis. No biliary ductal dilatation. 4. Two small nonenhancing cysts in the lower pole left kidney. No imaging follow-up necessary. 5. Trabeculated bladder wall thickening suggests chronic bladder outlet obstruction.
--- NOTE | 2025-02-26 08:58 | CT_ITS ---
PROCEDURE INFORMATION: Exam: CT Cervical Spine Without Contrast Exam date and time: 02/26/2025 10:10 AM Age: 70 years old Clinical indication: Injury or trauma; Fall; Other: Pain TECHNIQUE: Imaging protocol: Computed tomography of the cervical spine without contrast. Radiation optimization: All CT scans at this facility use at least one of these dose optimization techniques: automated exposure control; mA and/or kV adjustment per patient size (includes targeted exams where dose is matched to clinical indication); or iterative reconstruction. COMPARISON: CT CERVICAL SPINE WO CON 04/05/2023 8:06 AM FINDINGS: Bones: No acute fracture. Normal alignment. No significant disc bulge or herniation. No severe spinal canal stenosis. No significant neural foraminal narrowing. Mild stable degenerative changes at C1-C2 along the anterior arch. Lungs: Lung apices are normal. Soft tissues: Unremarkable. IMPRESSION: No acute cervical spine fracture.
--- NOTE | 2025-02-26 08:58 | CT_ITS ---
PROCEDURE INFORMATION: Exam: CTA Head With Contrast, Arteriography Exam date and time: 02/26/2025 10:12 AM Age: 70 years old Clinical indication: Injury or trauma; Fall; Other: Pain; Additional info: Fall, seizure, hit head TECHNIQUE: Imaging protocol: Computed tomographic angiography of the head with contrast. Exam focused on the arteries. 3D rendering (Not supervised by radiologist): MIP and/or 3D reconstructed images were created by the technologist. Radiation optimization: All CT scans at this facility use at least one of these dose optimization techniques: automated exposure control; mA and/or kV adjustment per patient size (includes targeted exams where dose is matched to clinical indication); or iterative reconstruction. Contrast material: ISOVUE; Contrast volume: 80 ml; Contrast route: INTRAVENOUS (IV); COMPARISON: CT ANGIO HEAD 11/02/2023 1:22 PM FINDINGS: ANTERIOR CIRCULATION: Right internal carotid artery: Intracranial segment is patent with no significant stenosis. No aneurysm. Right middle cerebral artery: No occlusion or significant stenosis. No aneurysm. Right anterior cerebral artery: No occlusion or significant stenosis. No aneurysm. Left internal carotid artery: Intracranial segment is patent with no significant stenosis. No aneurysm. Left middle cerebral artery: No occlusion or significant stenosis. No aneurysm. Left anterior cerebral artery: No occlusion or significant stenosis. No aneurysm. POSTERIOR CIRCULATION: Right vertebral artery: No occlusion or significant stenosis. No aneurysm. Left vertebral artery: No occlusion or significant stenosis. No aneurysm. Basilar artery: No occlusion or significant stenosis. No aneurysm. Right posterior cerebral artery: No occlusion or significant stenosis. No aneurysm. Left posterior cerebral artery: No occlusion or significant stenosis. No aneurysm. Brain: No definite mass, mass effect, or midline shift. Stable coarse calcifications in the posterior left temporal lobe. Cerebral ventricles: No ventriculomegaly. Bones/joints: Unremarkable. No acute fracture. Soft tissues: Unremarkable. IMPRESSION: 1. No large vessel arterial stenosis or occlusion in the head. 2. Stable coarse calcifications in the posterior left temporal lobe.
--- NOTE | 2025-02-26 08:58 | CT_ITS ---
PROCEDURE INFORMATION: Exam: CTA Chest With Contrast Exam date and time: 02/26/2025 10:16 AM Age: 70 years old Clinical indication: Injury or trauma; Fall; Other: Pain; Additional info: Fall, chest trauma TECHNIQUE: Imaging protocol: Computed tomographic angiography of the chest with contrast. Exam focused on the arteries. 3D rendering (Not supervised by radiologist): MIP and/or 3D reconstructed images were created by the technologist. Radiation optimization: All CT scans at this facility use at least one of these dose optimization techniques: automated exposure control; mA and/or kV adjustment per patient size (includes targeted exams where dose is matched to clinical indication); or iterative reconstruction. Contrast material: ISOVUE; Contrast volume: 80 ml; Contrast route: INTRAVENOUS (IV); COMPARISON: CR XR CHEST PORTABLE 11/02/2023 1:22 PM FINDINGS: Pulmonary arteries: No pulmonary emboli. Aorta: No aortic aneurysm. No aortic dissection. Lungs: Thornton dependent atelectasis. No airspace consolidation or nodules. Subcentimeter calcified granulomas in the left lower lobe. Pleural spaces: No pneumothorax. No pleural effusion. Heart: No cardiomegaly. No pericardial effusion. Coronary arteries: Small number of coronary artery calcifications. Lymph nodes: Calcified lymph nodes in the right and left janeen. Bones/joints: No acute fracture. Soft tissues: No soft tissue masses. IMPRESSION: 1. No traumatic or other acute findings in the chest. 2. No aortic aneurysm or intimal dissection. 3. No pulmonary emboli.
--- NOTE | 2025-02-26 09:03 | ED_ITS ---
Discharge Plan Disposition Patient Disposition: Still a Patient Condition: Good Prescriptions Prescriptions: No Action donepezil 5 mg tablet 5 mg PO DAILY divalproex 500 mg tablet,delayed release (DR/EC) 500 mg PO BID zonisamide 100 mg capsule 100 mg PO BID citalopram 20 mg tablet 20 mg PO DAILY ibuprofen 600 mg tablet 600 mg PO TIDP PRN (Reason: Pain (Scale Score 1-3)) CertaVite Senior 0.4 mg-300 mcg- 250 mcg tablet 1 tab PO DAILY Referrals Follow up/Referrals: Annette Paige MD [Staff Physician, Neurology] - See instructions Referral Note: seizures Abel Lechuga MD [Staff Physician, Family Practice] - See instructions Referral Note: needs new pcp Clinical Impressions Clinical Impression: Altered mental status, Seizure, Hematemesis Instructions Patient Instructions: DI for Seizure Disorder -- Adult, DI for Seizure (Not Epilepsy/Seizure Disorder), DI for Seizure Disorder -- Child Print Language Print Language: [place] Discharge ED Provider: Dewayne Deluca JR General Adult HPI General Chief complaint: Seizure Stated complaint: seizure Time Seen by Provider: 02/26/25 08:58 Mode of Arrival: EMS Source of Information: EMS Description of Symptoms (Recalled from ER Triage Doc. by RN): Patient presents to ED from [facility] for witnessed seizure. Staff reports patient was sitting in a chair when he seized, caught before he hit the ground. EMS gave 2.5 mg Versed en route, administered oxygen via nasal cannula at 3lpm. Also gave normal saline.2 History of Present Illness HPI narrative: This is a 70-year-old male with history of seizures on Depakote, history of schizophrenia coming from [facility] for a 4-minute generalized clonic seizure. Patient arrives postictal. Patient reportedly fell and hit his neck, chest, abdomen on a table. Arrives altered and nonverbal. Further history limited by patient's altered mental status. Discussed case with staff at [facility]. Patient reportedly was vomiting blood prior to seizure activity. No history of this before. Related Data Home Medications ?Medication ?Instructions ?Recorded ?Confirmed citalopram 20 mg tablet 20 mg PO DAILY 11/02/2310/06 divalproex 500 mg tablet,delayed 500 mg PO BID 4 11/02/23 release donepezil 5 mg tablet 5 mg PO DAILY 11/02/2311/01 ibuprofen 600 mg tablet 600 mg PO TIDP PRN Pain (Sca le 11/02/23 11/02/23 Score 1-3) [id number] acid 0.4 1 tab PO DAILY 11/02/23 mg-lycopene 300 mcg-lutein 250 mcg tablet (CertaVite Senior) zonisamide 100 mg capsule 100 mg PO BID 11/02/2311/01 Allergies Allergy/AdvReac Type Severity Reaction Status Date / Time No Known Allergies Allergy Verified 04/05/23 07:52 [facility] Disclaimer: The information contained in this section may have been updated after the patient was seen, as this information can be updated by other users. Social History (Updated 04/05/23 @ 13:31 by Erin Blount DO) Smoking Status: Unknown if ever smoked alcohol intake: never current occupational status: unemployed Travel in the last 8 weeks?: None Have you lived/traveled outside [place] in past 30 days?: No Contact w/someone who lives/traveled outside US past 30 days?: No Exposure to someone with infectious disease in past 14 days?: No Do you have a fever (greater than 100.4 F or 38 C)?: No Have you tested positive for COVID-19?: No Exposed to someone with COVID-19 in past 14 days?: No Do you have a sore throat?: No Do you have a cough?: No Do you have any weakness?: No Do you have any diarrhea?: No Are you experiencing any unusual bleeding?: No Do you have any muscle aches/pain?: No Do you have any abdominal pain?: No Are you experiencing loss of taste or smell?: No ROS Obtained: Yes unobtainable due to mental status and Yes unobtainable due to mental condition Physical Exam General General appearance: alert and in no apparent distress Head Head exam: atraumatic and normocephalic Eye Eye exam: Present PERRL and EOMI ENT ENT exam: Present normal exam Neck Neck exam: Present other (Bruising to left side of neck) Chest Chest inspection: Present other (Chest wall bruising) Respiratory Respiratory exam: Present normal lung sounds bilaterally; Absent respiratory distress Cardiovascular Cardiovascular exam: Present regular rate and normal rhythm Abdominal Exam Abdominal exam: Present other (Bruising to abdominal wall) Back Exam Back exam: Present full ROM Neurological Exam Neurological exam: Present other (Alert and oriented to person only) Skin Skin exam: Present warm and dry Medical Decision Making Medical Records Screening: Per USPSTF and CDC recommendations, given the prevalence of disease in our region, it is our hospital?s policy to screen for HIV and viral Hepatitis for all patients aged 18 and over and those with ongoing risk factors. Vinayak Inquiry Pt receiving controlled substance: No Vital Signs: 02/26/25 08:43 02/26/25 08:51 02/26/25 08:51 Temperature 97.4 F L 97.4 F L Temperature Source Axillary Axillary Pulse Rate 89 88 Pulse Rate [Right] 88 Respiratory Rate 18 18 Blood Pressure 124/64 124/64 Blood Pressure [Right Arm] 124/64 Blood Pressure Mean [Right Arm] 84 02 Sat by Pulse Oximetry 98 99 99 Oxygen Delivery Method Room Air Room Air 02/26/25 09:00 02/26/25 09:30 02/26/25 09:38 Temperature Temperature Source Pulse Rate 72 62 55 L Pulse Rate [Right] Respiratory Rate 15 13 Blood Pressure 98/56 L 91/69 L 91/69 L Blood Pressure [Right Arm] Blood Pressure Mean [Right Arm] 02 Sat by Pulse Oximetry 96 98 98 Oxygen Delivery Method Room Air Room Air 02/26/25 10:22 02/26/25 10:30 02/26/25 11:01 Temperature Temperature Source Pulse Rate 80 62 Pulse Rate [Right] Respiratory Rate 12 11 L 13 Blood Pressure 116/60 111/56 L 132/64 Blood Pressure [Right Arm] Blood Pressure Mean [Right Arm] 02 Sat by Pulse Oximetry 98 97 Oxygen Delivery Method Room Air 02/26/25 11:30 02/26/25 12:00 Temperature Temperature Source Pulse Rate Pulse Rate [Right] Respiratory Rate 14 15 Blood Pressure 137/76 132/79 Blood Pressure [Right Arm] Blood Pressure Mean [Right Arm] 02 Sat by Pulse Oximetry Oxygen Delivery Method Lab Data Lab Results 02/26/25 09:30: WBC 8.7, RBC 4.17 L, Hgb 13.7 L, Hct 40.2 L, MCV 96.4 H, MCH 32.9 H, MCHC 34.1, RDW 12.6, Plt Count 202, MPV 10.4, Neut % (Auto) 69.7, Lymph % (Auto) 21.5, Wharton % (Auto) 6.0, Eos % (Auto) 2.0, Baso % (Auto) 0.3, Neut # (Auto) 6.1, Lymph # (Auto) 1.9, Wharton # (Auto) 0.5, Eos # (Auto) 0.2, Baso # (Auto) 0.0, Sodium 139, Potassium 4.2, Chloride 110 H, Carbon Dioxide 18 L, A nion Gap 15.2 H, BUN 13, Creatinine 0.90, Estimated Creat Clear 64, Estimated GFR 83, Est GFR ( Amer) 100, Glucose 104 H, Lactate 4.5 H, Calcium 8.8, Total Bilirubin 0.3, AST 33, ALT 20, Alkaline Phosphatase 87, Total Protein 6.5, Albumin 3.7, Globulin 2.8, Albumin/Globulin Ratio 1.3, Lipase 108 02/26/25 09:30 02/26/25 09:30 Orders (Tests/Meds): ED MEDICATIONS Generic Name Dose Route Start Last Admin Trade Name Freq PRN Reason Stop Dose Admin Sodium Chloride 10 ml 02/26/25 10:14 02/26/25 10:14 Sodium Chloride 0.9% 10ml Syr (Rad Only) IV 03/28/25 10:13 10 ml NEEDED PRN Administration Maintain IV Site Discontinued Medications Generic Name Dose Route Start Last Admin Trade Name Freq PRN Reason Stop Dose Admin Levetiracetam 2,000 mg/ Sodium 120 mls @ 240 mls/hr 02/26/25 08:58 02/26/25 10:37 Chloride IV 02/26/25 08:59 Infused ONCE ONE Infusion Lactated Ringer's 1,000 mls @ 999 mls/hr 02/26/25 08:58 02/26/25 11:57 Lactated Ringer's 1000 Ml Bag IV 02/26/25 09:58 Infused .Q1H1M ONE Infusion Pantoprazole Sodium 80 mg/ 100 mls @ 100 mls/hr 02/26/25 10:42 02/26/25 11:09 Sodium Chloride IV 02/26/25 11:41 100 mls/hr ONCE ONE Administration Iopamidol 160 ml 02/26/25 10:14 02/26/25 10:15 Iopamidol-370 (76%);100ml Bottle IV 02/26/25 10:15 160 ml ONCE ONE Administration Sodium Chloride 100 ml 02/26/25 10:14 02/26/25 10:14 0.9 % Sodium Chloride 50 Ml Vial IV 02/26/25 10:15 100 ml ONCE ONE Administration ORDERS Category Date Time Status CT angio abdomen pelvis Stat Cat Scan 02/26/25 08:[address] angio chest - dissection Stat Cat Scan 02/26/25 08:[address] angio head Stat Cat Scan 02/26/25 08:[address] angio neck Stat Cat Scan 02/26/25 08:[address] cervical spine wo con Stat Cat Scan 02/26/25 08:[address] head/brain wo con Stat Cat Scan 02/26/25 08:58 Completed Complete Blood Count Auto Diff Stat Lab 02/26/25 09:30 Completed Comprehensive Metabolic Panel Stat Lab 02/26/25 09:30 Completed Lactic Acid Stat Lab 02/26/25 09:30 Completed Lipase Stat Lab 02/26/25 09:30 Completed Urinalysis and Microscopic Stat Lab 02/26/25 10:39 Ordered Medical Decision Narrative: 70-year-old male with history of seizures on Depakote presenting with altered mental status, hematemesis, seizure. EKG reviewed and independently interpreted, significant for normal sinus rhythm, no ST elevation, no STEMI, no prolonged QT interval CT head, CTA head and neck, CT neck, CTA chest and abdomen reviewed and independently interpreted, significant for no acute abnormalities. Please see radiology reports for further details. In summary, 70-year-old male with history of seizures on Depakote, history of schizophrenia presenting for a 4-minute generalized tonic-clonic seizure. Reportedly patient also had an episode of hematemesis. He did fall and hit his chest and abdomen. Arrives very confused and not at his baseline. He normally is GCS 15 and alert and oriented x 3. Patient remains persistently encephalopathic. Lactate elevated, consistent with reported seizure activity. Otherwise labs are unremarkable. Scans are unremarkable. CT imaging reviewed and independently interpreted, significant for no acute abnormalities. Discussed case with hospital medicine here. They refused the admission due to concern for a breakthrough seizure. They would like neurology evaluation at outside hospital. Discussed case with [facility]. Agreed to accept the patient for admission. Will need admission for encephalopathy, prolonged postictal state, breakthrough seizure, and potential upper GI bleeding. Discussed with Dr. Turner. Critical Care Critical Care Time Critical Care Time: No
--- OUTSIDE RECORDS SUMMARY | 2025-02-26 09:11 | XMS_ITS | Clinical Summary ---
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 Bipolar disorder, unspecified 08/11/2023 Resolved Problems Problem Noted Date Diagnosed Date Resolved Date Depression with anxiety 08/11/202312/06 Cognitive decline 08/11/2023 12/29/2023 Adjustment disorder with mix ed anxiety and depressed mood 08/11/2023 12/29/2023 History of seizures 08/11/2023 12/29/19 Irritability and anger 08/11/202312/28 Social History Tobacco Use Types Packs/Day Years Used Date Smoking Tobacco: Never Assessed Sex and Gender Information Value Date Recorded Sex Assigned at Not on file Legal Sex Male 11:03 PM EST Gender Identity Not on file Sexual Orientation Not on file Plan of Treatment Health Maintenance Due Date Last Done Comments Annual Wellness Exam 01/29/1958 Hepatitis C Screening 1971 DTaP/TDaP/Td (1 - Tdap) 01/29/1972 Cologuard 1998 Colon Cancer Screening 1998 Colonoscopy 1998 FIT 1998 Sigmoidoscopy 1998 Virtual Colonography 1998 Pneumococcal Vaccine 50+ (1 of 1 - PCV) 2003 Zoster (1 of 2) 2003 COVID-19 Vaccine (2023-2 5 season) 2024 Influenza Vaccine (#1) 2025 Hepatitis B Vaccine Aged Out No longe r eligible based on patient's age to complete this topic Meningococcal B Vaccine Aged Out No l onger eligible based on patient's age to complete this topic Insurance [facility] MEDICARE [employer] [place] [address]
--- NOTE | 2025-02-26 09:13 | ECG_ITS ---
APPROVED REPORT Exam: Resting ECG HR:77 bpm ECG Measurements Heart Rate 77 AXES NM 175 P 61 QRSd 88 QRS 67 QT 392 T 69 QTc 423 Conclusion SINUS RHYTHM NORMAL ECG Electronically signed by : VERA VALENTIN, 03/05/2025 00:13:47
[2025-02-26] MEDS: LACTATED RINGERS 1000ML 1,000 ML 999 ML IV (09:19)
[2025-02-26] MEDS: levETIRAcetam 2,000 MG in 0.9 % SODIUM CHLORIDE 100 ML 240 MG IV (09:21)
[2025-02-26 09:38] LABS: Hematocrit 40.2 % (42.0-52.0); Hemoglobin 13.7 g/dL (14.1-18.0); Immature Granulocytes % 0.5 %; Mean Corpuscular HGB Conc 34.1 g/dL (31.8-35.4); Mean Corpuscular Hemoglobin 32.9 pg (27.0-31.2); Mean Corpuscular Volume 96.4 fl (80-94); Nucleated Red Blood Cells % 0 %; Platelet Count 202 K/mm3 (142-424); Red Blood Count 4.17 M/mm3 (4.60-6.20); Red Cell Distribution Width-SD 44.8 fL; White Blood Count 8.7 K/mm3 (4.8-10.8)
[2025-02-26 09:46] LABS: Albumin Level 3.7 g/dl (3.5-5.0); Chloride 110 mmol/L (98-107); Potassium 4.2 mmoL/L (3.5-5.1); Sodium 139 mmol/L (136-145)
[2025-02-26 09:49] LABS: Alanine Aminotransferase 20 U/L (12-78); Albumin/Globulin Ratio 1.3 (1.1-1.8); Alkaline Phosphatase 87 U/L (38-126); Anion Gap 15.2 mEq/L (5-15); Aspartate Amino Transferase 33 U/L (17-59); Bilirubin,Total 0.3 mg/dl (0.2-1.3); Blood Urea Nitrogen 13 mg/dl (9-20); Calcium 8.8 mg/dl (8.4-10.2); Carbon Dioxide 18 mmol/L (22.0-30.0); Creatinine Clearance Estimated 64 mL/min (50-200); Creatinine,Serum 0.90 mg/dl (0.66-1.25); Estimated Glomerular Filt Rate 83 ml/min (>60); GFR (African American) 100 ML/MIN (>60); Globulin 2.8 g/dL (1.3-3.2); Glucose 104 mg/dl (74-100); Lipase 108 U/L (23-300); Total Protein,Serum 6.5 g/dl (6.3-8.2)
--- NOTE | 2025-02-26 09:57 | PC.NURSE ---
pt going for CT via bed with indoor plant technician at this time
[2025-02-26] MEDS: SODIUM CHLORIDE 0.9% 10ML SYR (RAD ONLY) 10 ML IV (10:14)
[2025-02-26] MEDS: 0.9 % SODIUM CHLORIDE 50 ML VIAL 100 ML IV (10:14)
[2025-02-26] MEDS: IOPAMIDOL-370 (76%);100ML BOTTLE 160 ML IV (10:15)
--- NOTE | 2025-02-26 10:21 | PC.NURSE ---
Patient back from radiology
[2025-02-26] MEDS: PANTOPRAZOLE SODIUM 80 MG in 0.9 % SODIUM CHLORIDE 100 ML 100 MG IV (11:09)
--- NOTE | 2025-02-26 11:43 | PC.NURSE ---
Called [facility] for a patient transfer per Dr. Deluca. they said that they will call back as soon as the neurologist can speak.
--- NOTE | 2025-02-26 12:03 | PC.NURSE ---
is on the phone with [facility].
[2025-02-26 13:36] LABS: Reflex Lactic Add Lactic Reflex
--- NOTE | 2025-02-26 13:42 | PC.NURSE ---
Attempted to call EMS to let them know we had a transfer but no one answered.
--- NOTE | 2025-02-26 13:59 | PC.NURSE ---
I called EMS and they said that they would be up here in just a few minutes to get the patient.
== END 2025-02-26 14:27 | disposition short-term general hospital (02) ==
PROVIDERS: Emergency Provider Student in an Organized Health Care Education/Training Program
DX: R41.82 Altered mental status, unspecified (principal); G40.909 Epilepsy, unspecified, not intractable, without status epilepticus; K92.0 Hematemesis
CPT/HCPCS: 70450; 70496; 70498; 71275; 72125; 74174; 80053; 83605; 83690; 85025; 93005; 96365; 96367; 96375; 99285; J1953; J2470; J7120; Q9967